=== PATIENT | male | born 1970 | race Caucasian/White ===

== ENCOUNTER 2017-03-27 18:31 | Emergency (ER) | payer BC ==
[~2017-03-27] VITALS: Ht 167.6 cm; Wt 83.0 kg
[2017-03-27] MEDS ORDERED: METHYLPREDNISOLONE SOD SUCC 125 MG/2 ML VIAL IV STA (21:10)
[2017-03-27] MEDS ORDERED: KETOROLAC 30MG/ML VIAL IV STA (21:10)
[2017-03-27] MEDS ORDERED: ASPIRIN 81MG TABLET PO ONE (21:15)
[2017-03-27] MEDS ORDERED: LABETALOL HCL 20MG/4ML CARPUJECT IV ONE (21:15)
[2017-03-27 22:23] LABS: INR 1.1; PARTIAL THROMBOPLASTIN TIME 25.7 sec (24.0-34.0); PROTHROMBIN TIME 11.4 sec
[2017-03-27 22:24] LABS: EOSINOPHILS % 0.1 % (0.0-5.0); HEMATOCRIT. 44.1 % (42.0-52.0); LYMPHOCYTES % 8.5 % (20.0-50.0); MEAN CORPUSCULAR HEMOGLOBIN 28.5 pg (28.0-32.0); MEAN CORPUSCULAR HGB CONC 34.1 g/dL (31.0-37.0); MEAN CORPUSCULAR VOLUME 83.7 fL (80.0-94.0); MEAN PLATELET VOLUME 7.7 fl (7.4-10.4); MONOCYTES % 5.6 % (2.0-8.0); NEUTROPHILS % 85.8 % (40.0-76.0); PLATELET 316 x1000/uL (130-400); RED BLOOD CELL COUNT 5.27 mill/uL (4.7-6.1); RED CELL DISTRIBUTION WIDTH 12.5 % (11.6-14.6); WHITE BLOOD COUNT 12.7 x1000/uL (4.5-11.0)
[2017-03-27 22:32] LABS: ALANINE AMINOTRANSFERASE 31 IU/L (13-61); ALBUMIN 4.1 g/dL (3.4-5.0); ANION GAP 17; CALCIUM 8.9 mg/dL (8.5-10.1); CARBON DIOXIDE 21 mEq/L (21-32); CHLORIDE 97 mEq/L (98-107); INDEX HEMOLYSI 1 (1-3); INDEX ICTERIC 1 (1-4); INDEX LIPEMIC 1 (1-3); NT PRO B-TYPE NATRIURETIC PEP 19 pg/mL (5-125); TROPONIN I < 0.02 ng/mL (0.00-0.04); UREA NITROGEN BLOOD 21 mg/dL (7-21); eGFR > 60 mL/min (>60)
[2017-03-27] MEDS ORDERED: LABETALOL 5MG/ML SYR 20 MG/4 ML SYRINGE IV NR (22:41)
[2017-03-28 00:57] VITALS: BP 147/90
== END 2017-03-28 01:08 | disposition home or self-care (01) ==
LOC: ER 22:36
DX: R42 Dizziness and giddiness (principal); J02.9 Acute pharyngitis, unspecified; R73.9 Hyperglycemia, unspecified; I10 Essential (primary) hypertension; R53.1 Weakness; R07.9 Chest pain, unspecified; R00.2 Palpitations; T70.0XXA Otitic barotrauma, initial encounter; X58.XXXA Exposure to other specified factors, initial encounter; Y93.89 Activity, other specified; Y99.8 Other external cause status; Y92.89 Other specified places as the place of occurrence of the external cause
CPT/HCPCS: 36415; 70450; 71010; 80053; 83880; 84484; 85025; 85610; 85730; 87804; 93005; 96374; 96375; 99285; J1885; J2930; J3490

== ENCOUNTER 2018-01-28 13:46 | Emergency (ER) | payer BC, OTHER ==
[~2018-01-28] VITALS: Ht 167.6 cm; Wt 79.0 kg
[2018-01-28] MEDS ORDERED: CLONIDINE 0.2MG TABLET PO ONE (16:30)
[2018-01-28 17:06] LABS: BASOPHILS % 0.2 % (0.0-2.0); EOSINOPHILS % 0.1 % (0.0-5.0); HEMATOCRIT. 45.2 % (42.0-52.0); HEMOGLOBIN. 15.4 g/dL (14.0-18.0); LYMPHOCYTES % 16.3 % (20.0-50.0); MEAN CORPUSCULAR HEMOGLOBIN 28.9 pg (28.0-32.0); MEAN CORPUSCULAR VOLUME 84.6 fL (80.0-94.0); MEAN PLATELET VOLUME 7.9 fl (7.4-10.4); MONOCYTES % 6.4 % (2.0-8.0); PLATELET 291 x1000/uL (130-400); RED BLOOD CELL COUNT 5.34 mill/uL (4.7-6.1); RED CELL DISTRIBUTION WIDTH 12.9 % (11.6-14.6)
[2018-01-28 17:14] LABS: INR 1.1; PARTIAL THROMBOPLASTIN TIME 25.4 sec (23.4-31.0); PROTHROMBIN TIME 11.1 sec (9.4-11.6)
[2018-01-28 17:23] LABS: CHLORIDE 102 mEq/L (98-107)
[2018-01-28] MEDS ORDERED: CLONIDINE 0.1MG TABLET PO ONE (19:15)
[2018-01-28] MEDS ORDERED: POTASSIUM CHLORIDE 20MEQ TABLET SR PO ONE (19:45)
[2018-01-28] MEDS ORDERED: HYDRALAZINE 20MG/ML VIAL IV ONE (20:15)
[2018-01-28 21:15] VITALS: BP 159/110
== END 2018-01-28 21:15 | disposition home or self-care (01) ==
LOC: ER 15:11
DX: I10 Essential (primary) hypertension (principal); E11.9 Type 2 diabetes mellitus without complications; R42 Dizziness and giddiness
CPT/HCPCS: 36415; 71045; 80048; 84484; 85025; 85610; 85730; 93005; 99285; J0360